=== PATIENT | female | born 1960 | race Caucasian/White ===

== ENCOUNTER 2025-03-19 20:40 | Emergency (ER) | payer OTHER, SELFPAY ==
[2025-03-19] MEDS ORDERED: Acetaminophen 500 MG TAB ONE (21:53)
== END 2025-03-19 21:57 | disposition home or self-care (01) ==
LOC: ERS 20:40
DX: H60.501 Unspecified acute noninfective otitis externa, right ear (principal); H61.21 Impacted cerumen, right ear; I10 Essential (primary) hypertension; E11.40 Type 2 diabetes mellitus with diabetic neuropathy, unspecified
CPT/HCPCS: 99282